=== PATIENT | female | born 1985 | race Caucasian/White ===

== ENCOUNTER 2019-04-03 19:10 | Emergency (ER) | payer OTHER ==
[~2019-04-03] VITALS: Ht 172.7 cm; Wt 60.9 kg
[2019-04-03 19:31] VITALS: BP 127/82
[2019-04-03] MEDS ORDERED: FLUORESCEIN OPHTHALMIC 1 MG STRIP ONE (19:49)
[2019-04-03] MEDS ORDERED: PROPARACAINE OPHTH 0.5%, 15ML EACHEYE ONE (20:00)
[2019-04-03] MEDS ORDERED: FLUORESCEIN OPHTHALMIC 1 MG STRIP EACHEYE ONE (20:00)
--- NOTE | 2019-04-03 20:17 | NUR ---
TO ROOM 20
--- NOTE | 2019-04-03 20:40 | NUR ---
FRIEND AT BS
== END 2019-04-03 22:06 | disposition home or self-care (01) ==
LOC: ED 21:50
DX: S05.01XA Injury of conjunctiva and corneal abrasion without foreign body, right eye, initial encounter (principal); X58.XXXA Exposure to other specified factors, initial encounter; Y93.89 Activity, other specified; Y92.89 Other specified places as the place of occurrence of the external cause; Y99.8 Other external cause status
CPT/HCPCS: 99283

== ENCOUNTER 2019-12-24 20:49 | Emergency (ER) | payer OTHER ==
[~2019-12-24] VITALS: Ht 172.7 cm; Wt 62.0 kg
[2019-12-24 20:58] VITALS: BP 115/77
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
== END 2019-12-24 23:21 | disposition home or self-care (01) ==
LOC: ED 21:00
DX: S61.236A Puncture wound without foreign body of right little finger without damage to nail, initial encounter (principal); M79.644 Pain in right finger(s); W46.0XXA Contact with hypodermic needle, initial encounter; Y93.89 Activity, other specified; Y92.89 Other specified places as the place of occurrence of the external cause; Y99.8 Other external cause status
CPT/HCPCS: 36415; 86705; 86706; 86803; 87340; 87806; 99283; G0475